=== PATIENT | male | born 1995 | race Caucasian/White ===

== ENCOUNTER → 2017-02-02 | Outpatient (CLI) | payer OTHER ==
[2017-02-02 16:50] LABS: BASO % 0.7 % (0.0-1.0); LARGE UNSTAINED CELL # 0.1 K/mm3 (0.0-0.4); LARGE UNSTAINED CELL % 2.1 % (0.0-4.0); LYMPH # 1.5 K/mm3 (1.5-6.5); LYMPH % 29.5 % (24.0-44.0); MEAN CORPUSCULAR HGB CONC 34.2 g/dl (32.0-36.5); MEAN CORPUSCULAR VOLUME 93.5 fl (80.0-96.0); MONO # 0.3 K/mm3 (0.0-0.8); MONO % 6.1 % (0.0-5.0); NEUTROPHILS # 3.2 K/mm3 (1.8-7.7); NEUTROPHILS % 60.7 % (36.0-66.0); PLATELET COUNT, AUTOMATED 214 k/mm3 (150-450); RED CELL DISTRIBUTION WIDTH 11.9 % (11.5-14.5); WHITE BLOOD COUNT 5.2 K/mm3 (4.0-10.0)
== END ==
LOC: M WUC 11:43
PROVIDERS: ATTEND Nurse Practitioner Family
DX: R36.1 Hematospermia (principal)

== ENCOUNTER → 2017-12-15 | Outpatient (REF) | payer BC | LOC: M LAB REF 19:25 | DX: J02.9 Acute pharyngitis, unspecified (principal) | CPT/HCPCS: 87070 ==

== ENCOUNTER → 2019-08-20 | Outpatient (CLI) | payer BC ==
--- NOTE | 2019-08-20 18:29 | REP ---
Two-view chest: 08/20/2019. Indication: Cough. Comparison: None. Findings: The lungs are clear. There is no pleural effusion or pneumothorax. The cardiomediastinal silhouette is unremarkable. Impression: No acute cardiopulmonary process. Electronically Signed by Giuliano Emmanuel DO 08/20/2019 06:20 P
== END ==
LOC: M WUC 18:08
PROVIDERS: ATTEND Physician Assistant
DX: R05 Cough (principal)

== ENCOUNTER → 2020-11-20 | Outpatient (CLI) | payer BC ==
--- NOTE | 2020-11-20 19:29 | REP ---
INDICATION: TESTICULAR PAIN. COMPARISON: None. TECHNIQUE: Multiple sonographic images of the scrotum including Doppler ultrasound. FINDINGS: The right testis measures 4.5 x 2.5 x 2.8 cm. The left testis measures 4.4 x 2.6 x 3.4 cm. The testes are normal size. There are no testicular masses or cysts. There is vascular flow in both testes with the Doppler resistive index in the parenchymal arteries of the right testis measuring 0.43 in the left testis 0.50. The epididymal heads are normal size measuring 9 mm on the right and 12 mm on the left. There are no epididymal head cyst. There are tubular structures medial to the right testis that demonstrate increased vascular flow on Valsalva, raising the possibility of right varicocele. IMPRESSION: Question right varicocele. Otherwise, negative scrotal ultrasound. <Electronically signed by Alex Coopre > 11/20/201925
== END ==
LOC: M RAD 10:49
PROVIDERS: ATTEND Physician Assistant
DX: N50.811 Right testicular pain (principal)

== ENCOUNTER → 2024-01-12 | Outpatient (CLI) | payer BC | LOC: M PLAIMG 14:36 | PROVIDERS: ATTEND Family Medicine | DX: M54.6 Pain in thoracic spine (principal) ==